=== PATIENT | female | born 1995 | race Hispanic/Latino ===

== ENCOUNTER 2017-11-09 14:51 | Emergency (ER) | payer OTHER ==
[~2017-11-09] VITALS: Ht 144.8 cm; Wt 120.2 kg
[2017-11-09] MEDS ORDERED: ACETAMINOPHEN 325 MG TAB PO ONE (16:00)
[2017-11-09] MEDS ORDERED: CEFTRIAXONE SOD 1 GM VIAL IM ONE ×2 (16:00→16:15)
[2017-11-09 19:02] VITALS: BP 120/76
== END 2017-11-09 18:36 | disposition short-term general hospital (02) ==
LOC: FSED 14:51
DX: R51 Headache (principal); R10.11 Right upper quadrant pain; Z98.2 Presence of cerebrospinal fluid drainage device; Z88.5 Allergy status to narcotic agent; Z88.2 Allergy status to sulfonamides
CPT/HCPCS: 70450; 74176; 80053; 81003; 81025; 85025; 99284; J0696